=== PATIENT | male | born 1965 | race Caucasian/White ===

== ENCOUNTER 2024-01-18 21:39 | Emergency (ER) | payer BC ==
[~2024-01-18] VITALS: Ht 182.9 cm; Wt 91.0 kg
[2024-01-18] MEDS ORDERED: CONSTULOSE10 GM/15 M PO (22:14)
[2024-01-18 22:27] VITALS: BP 146/73
[2024-01-18 22:30] VITALS: BP 143/69
[2024-01-18] MEDS ORDERED: ONDANSETRON HCl 4 MG/2 ML SDV IV ONE (22:50)
[2024-01-18] MEDS ORDERED: ZOFRAN4 MG/TAB PO (23:38)
[2024-01-18 23:51] VITALS: BP 143/69
[2024-01-19] MEDS ORDERED: ZOFRAN4 MG/TAB PO (11:23)
== END 2024-01-19 | disposition home or self-care (01) | DRG 392 ==
LOC: EDSEX 21:39 → ED 21:39
DX: R11.2 Nausea with vomiting, unspecified (principal); K72.10 Chronic hepatic failure without coma; K74.60 Unspecified cirrhosis of liver; I10 Essential (primary) hypertension